=== PATIENT | male | born 1975 | race Caucasian/White ===

== ENCOUNTER 2016-07-03 20:46 | Emergency (ER) | payer SELFPAY ==
[~2016-07-03] VITALS: Ht 185.4 cm; Wt 85.7 kg
[2016-07-03 21:13] VITALS: BP 144/76
--- NOTE | 2016-07-03 22:19 | NUR ---
EAR IRRIGATED X2 WITH NO SUCCESS. C BEBO MATHIAS IS AWARE.
--- NOTE | 2016-07-03 22:20 | NUR ---
Patient discharged to home in stable condition. PT REFUSED ALL ACI AND RX. PT LEFT WITH OUT LAST VS.
== END 2016-07-03 22:22 | disposition home or self-care (01) ==
LOC: ER 20:48
DX: H60.91 Unspecified otitis externa, right ear (principal)
CPT/HCPCS: 99283; A4606; Z7610